=== PATIENT | male | born 1955 ===

== ENCOUNTER 2022-02-22 20:02 | Emergency (ER) | payer BC, SELFPAY ==
[2022-02-22] MEDS ORDERED: EPINEPHrine 1 MG/10 ML SYR IV ONE (20:03)
[2022-02-22] MEDS ORDERED: Caclcium Chloride 10% INJ SYR IV ONE (20:03)
--- NOTE | 2022-02-22 22:46 | EDPHYS ---
Physician Documentation [facility] Name: Ethan Bronson Age: 66 yrs Sex: Male : 1955 Arrival Date: 02/22/2022 Time: 20:04 Bed 3 Private MD: ED Physician Ruben Espino HPI: 02/23 01:40 This 66 yrs old Male presents to ER via EMS with complaints of CPR. kdr 01:40 Preceding the arrest, the patient collapsed. The arrest occurred [place]. Pre-hospital kdr course: The arrest was witnessed ACLS details: Initial rhythm was asystole. The presenting rhythm is asystole. Airway: oral intubation, Medications given by EMS prior to arrival - Epinephrine IV x My biomarker doses, Defibrillated X 3, Response to therapy: continued arrest. The patient has not experienced similar symptoms in the past. It is unknown whether or not the patient has recently seen a physician. Patient reportedly had a extensive cardiac history according to the family. Historical: - Allergies: 02/22 20:46 Unable to obtain; ld1 - Home Meds: 20:46 Unable to obtain [Active]; ld1 - PMHx: 20:46 Unable to Obtain; ld1 - PSHx: 20:46 Unable to Obtain; ld1 - Immunization history:: Adult Immunizations unknown. - Social history:: Smoking status: unknown. ROS: 02/23 01:40 Constitutional: Unobtainable as the patient is unresponsive kdr Unable to obtain ROS due to patient is on ventilator. Exam: 01:40 Constitutional: This is a well developed, well nourished patient who is awake, alert, kdr and in no acute distress. Head/Face: Normocephalic, atraumatic. Neck: Trachea midline, no thyromegaly or masses palpated, and no cervical lymphadenopathy. Supple, full range of motion without nuchal rigidity, or vertebral point tenderness. No Meningismus. Chest/axilla: Normal chest wall appearance and motion. Nontender with no deformity. No lesions are appreciated. 01:40 Eyes: Pupils: dilated, bilaterally, post cataract surgery, both eyes. 01:40 Cardiovascular: Rhythm: asystole, Pulses: not palpable. Vital Signs: 02/22 20:05 Pulse 0; Temp 99.1(R); ld1 MDM: 22:46 Patient medically screened. kdr 02/23 01:40 Data reviewed: vital signs, nurses notes. Counseling: I had a detailed discussion with kdr the patient and/or guardian regarding: the historical points, exam findings, and any diagnostic results supporting the discharge/admit diagnosis, Patient was pronounced at 20;09. Patient never had any electrical activity on the monitor. There was never any pulse generator. Patient had been down for approximately 50 minutes prior to arrival in the ED. Patient had an IO in the left proximal tibia. The airway was intact and ventilating both lungs. Patient had been given fluids as well as medications through the IO without incident or apparent infiltration. Patient appeared to be oxygenating well and moving air appropriately. After several rounds of ACLS medication (epinephrine), and without any further electrical activity noted or elicited. Patient was pronounced . Medication response: None. Administered Medications: 02/22 20:04 Drug: EPINEPHrine 0.1mg/mL 1:10,000 1 mg {Note: io to left lower extremity.} Route: ld1 IVP; Site: Other; 20:08 Drug: EPINEPHrine 0.1mg/mL 1:10,000 1 mg Route: Endotracheal; ld1 Disposition: 22:41 . kdr Disposition Summary: 02/22/22 22:46 Patient Location: Office Manager Executive Assistant kdr Pronouncing Physician: Ruben Espino [facility] Time of : 20:09 02/22/2022 kdr Diagnosis - Cardiopulmonary arrest kdr Signatures: Ruben Espino MD MD kdr Audrey Shipman RN RN ld1 Corrections: (The following items were deleted from the chart) 20:46 20:46 PSHx: None; ld1 ld1
--- NOTE | 2022-02-22 22:46 | ER ---
Nurse's Notes [facility] Name: Ethan Bronson Age: 66 yrs Sex: Male : 1955 Arrival Date: 02/22/2022 Time: 20:04 Bed 3 Private MD: Diagnosis: Cardiopulmonary arrest Presentation: 02/22 20:01 Chief complaint: EMS states: toned out for CPR in progress. Pt found on [place] - ld1 witnessed cardiac arrest. Chest compressions began 1 minute after arrest began. Care prior to arrival: CPR performed by bystander Medication(s) given: 5 rounds of EPI were given prior to arrival. Compressions began. 20:01 Method Of Arrival: EMS: [facility] ld1 20:01 Acuity: GERRY 1 ld1 20:01 Care prior to arrival: Assisted ventilation, Oral intubation, Placed on backboard. ld1 Glucose check: 58. 20:43 Care prior to arrival: 15G IO. 8.0 ET tube - 24 at the teeth. 5 shocks administered - ld1 pt remained in asystole. Upon arrival to ER pt remain in asystole. 4 round of EPI prior to arrival. 20:45 Coronavirus screen: At this time, the client does not indicate any symptoms associated ld1 with coronavirus-19. Ebola Screen: No symptoms or risks identified at this time. Initial Sepsis Screen: Does the patient meet any 2 criteria? No. Patient's initial sepsis screen is negative. Does the patient have a suspected source of infection? No. Patient's initial sepsis screen is negative. Risk Assessment: Do you want to hurt yourself or someone else? Unable to obtain. Onset of symptoms was February 22, 2022. Triage Assessment: 20:04 General: Behavior is unresponsive. Pain: Unable to use pain scale. Patient is ld1 unresponsive. 20:46 General: See triage assessment. ld1 Historical: - Allergies: 20:46 Unable to obtain; ld1 - Home Meds: 20:46 Unable to obtain [Active]; ld1 - PMHx: 20:46 Unable to Obtain; ld1 - PSHx: 20:46 Unable to Obtain; ld1 - Immunization history:: Adult Immunizations unknown. - Social history:: Smoking status: unknown. Screenin:05 Abuse screen: Denies threats or abuse. Denies injuries from another. Nutritional ld1 screening: No deficits noted. Tuberculosis screening: No symptoms or risk factors identified. 20:09 Fall Risk None identified. ld1 Assessment: 20:01 CPR assessment: unresponsive, intubated, Ambu ventilation, pulses absent w/ ld1 compressions. Cardiac rhythm is asystole. General: Appears distressed. Neuro: Level of Consciousness is unresponsive. EENT: No signs and/or symptoms were reported regarding the EENT system. EENT:. Cardiovascular: Rhythm is asystole. Respiratory: Ventilator assessment: ET Tube: 8.5 at gum line. GI: Abdomen is round. 20:01 : No signs and/or symptoms were reported regarding the genitourinary system. Derm: No ld1 signs and/or symptoms reported regarding the dermatologic system. Musculoskeletal: No signs and/or symptoms reported regarding the musculoskeletal system. 20:47 Pain: Unable to use pain scale. Patient is unresponsive. ld1 Vital Signs: 20:05 Pulse 0; Temp 99.1(R); ld1 Vitals: 20:09 Cardiac Rhythm Assessment [place]. ld1 ED Course: 20:04 Patient arrived in ED. mw2 20:05 Patient has correct armband on for positive identification. Intubation: 8.0 Fr. ETT ld1 placed orally. Intubation: Performed by EMS prior to arrival. 8.0 ET tube - 24 at the teeth.. Inserted saline lock: 18 gauge in right antecubital area, using aseptic technique. Accessed 15g IO by EMS. 20:08 Saira Bronson () [phone]. mw2 20:11 Police Contacted [facility] to have an officer call the Booth Supervisor out for the mw2 patient. 20:27 Ruben Espino MD is Attending Physician. kdr 20:32 Triage completed. ld1 20:46 Arm band placed on right wrist. ld1 20:53 No provider procedures requiring assistance completed. CPR. ld1 22:34 Bhargavi Alas RN is Primary Nurse. eh3 22:42 Ruben Espino MD is Pronouncing Provider. kdr 22:46 Audrey Shipman RN is Primary Nurse. ld1 Administered Medications: 20:04 Drug: EPINEPHrine 0.1mg/mL 1:10,000 1 mg {Note: io to left lower extremity.} Route: ld1 IVP; Site: Other; 20:08 Drug: EPINEPHrine 0.1mg/mL 1:10,000 1 mg Route: Endotracheal; ld1 Medication: 20:09 VIS not applicable for this client. ld1 Outcome: 20: Outcome Patient ld1 20: Condition: ld1 20: Patient : ld1 22:47 Patient left the ED. ld1 Signatures: Ruben Espino MD MD [facility] Laila Wallace 2 Audrey Shipman RN RN 1 Bhargavi Alas RN RN 3 Corrections: (The following items were deleted from the chart) 20:46 20:46 PSHx: None; ld1 ld1 20:49 20:48 Reassessment: ld1 ld1
[2022-02-23 02:12] VITALS: TEMP 99.1
== END 2022-02-22 22:47 ==
LOC: ER 20:02
DX: I46.9 Cardiac arrest, cause unspecified (principal)
CPT/HCPCS: 31500; 92950; 96374; 99285; J0171